=== PATIENT | female | born 1975 | race Caucasian/White ===

== ENCOUNTER → 2020-05-13 | Outpatient (CLI) | LOC: LABNPT 08:47 | PROVIDERS: ATTEND Otolaryngology Otolaryngology/Facial Plastic Surgery | DX: R50.9 Fever, unspecified (principal); Z20.828 Contact with and (suspected) exposure to other viral communicable diseases | CPT/HCPCS: 87635 ==

== ENCOUNTER 2022-01-25 11:42 | Emergency (ER) | payer OTHER ==
[~2022-01-25] VITALS: Ht 154.9 cm; Wt 74.7 kg
--- NOTE | 2022-01-25 12:10 | ED General ---
General Chief Complaint: Bite-Animal/Human/Insect Stated Complaint: SPIDER BITE History of Present Illness Date Seen by Provider: Jan 25, 2022 Time Seen by Provider: 10:02 Initial Comments 46-year-old female is here with complaints of spider bite to her left posterior shoulder. Patient went to urgent care yesterday and was given a 5-day prescription for prednisone. Patient is having a rash which is on her back and her leg and is in the ER for follow-up of her symptoms. Denies itching, fever, nausea vomiting, abdominal pain, shortness of breath, chest pain, diarrhea. Allergies and Home Medications Patient Home Medication List Home Medication List Reviewed: Yes Review of Systems Review of Systems Constitutional: no symptoms reported EENTM: no symptoms reported Respiratory: no symptoms reported Cardiovascular: no symptoms reported Gastrointestinal: no symptoms reported Genitourinary: no symptoms reported Musculoskeletal: no symptoms reported Skin: rash, other (spider bite) Psychiatric/Neurological: No Symptoms Reported Hematologic/Lymphatic: No Symptoms Reported Immunological/Allergic: no symptoms reported Past Bjpbiuh-Wrmuem-Koruhi Hx Patient Social History Tobacco Use?: No Smokeless Tobacco Frequency: Never a User Use of E-Cig and/or Vaping Aki: Never a User Substance use?: No Alcohol Use?: No Pt feels they are or have been: No Immunizations Up To Date Influenza Vaccine Up-to-Date: Yes; Up-to-Date First/Initial COVID19 Vaccinat: ? October 2020 Second COVID19 Vaccination Antonio: ? December 2020 Past Medical History Surgery/Hospitalization HX: Hysterectomy, [place] teeth, Heart ablation, Hx SVT, Environmental allergy Physical Exam Vital Signs Vital Signs - First Documented 01/25/22 11:45 Temp 36.8 Pulse 99 Resp 20 B/P (MAP) 155/98 (117) Pulse Ox 99 O2 Delivery Room Air Capillary Refill : Height, Weight, BMI Height: '" Weight: lbs. oz. kg; BMI Method: General Appearance: No Apparent Distress HEENT: PERRL/EOMI Neck: Full Range of Motion Respiratory: Chest Non Tender, Lungs Clear Cardiovascular: Regular Rate, Rhythm Gastrointestinal: Normal Bowel Sounds, Non Tender, Soft Back: No CVA Tenderness Neurologic/Psychiatric: Alert, Oriented x3, No Motor/Sensory Deficits, Normal Mood/Affect Skin: Rash (Macular rash on back posterior. Rash on lower legs macular nonpruritic. No pedal edema.), Other (Spider bite with blister formation over the bite area on right posterior shoulder with surrounding erythema.) Lymphatic: No Adenopathy Progress/Results/Core Measures Suspected Sepsis SIRS Temperature: Pulse: Respiratory Rate: Blood Pressure / Mean: Results/Orders Vital Signs/I&O 01/25/22 11:45 Temp 36.8 Pulse 99 Resp 20 B/P (MAP) 155/98 (117) Pulse Ox 99 O2 Delivery Room Air Capillary Refill : Progress Note : Progress Note 1. BROWN RECLUSE SPIDER BITE: - Pt already has prescription for prednisone from urgent care. Advised to continue the entire course -Augmentin prescription given for 7 days twice daily -Antibiotic ointment recommended for spider bite area -Benadryl and Pepcid which are [id number], Benadryl 25 mg twice a day and Pepcid 20 mg once daily. No driving while taking Benadryl -Follow-up with PCP within the next 5 to 7 days -The patient was seen in the ED, and treated appropriately to presentation at a specific point in time. Patient is informed that there is a possibility that disease and illness can evolve and change in acuity rapidly or slowly after patient is discharged from the ER. Precautionary advice given to the patient for immediate return to ER if symptoms worsen or do not resolve, and to seek emergency care sooner rather than later. Pt also advised on the importance of PCP follow up and compliance with management and follow up plan with PCP and/or specialist, as this is part of the management plan. Pt verbally expressed understanding. Departure Impression Primary Impression: Brown recluse spider bite Qualified Codes: T63.331A - Toxic effect of venom of brown recluse spider, accidental (unintentional), initial encounter Disposition: HOME, SELF-CARE Condition: Stable Departure-Patient Inst. Referrals: NO,LOCAL PHYSICIAN (PCP/Family) Primary Care Physician Patient Instructions: Spider Bites, Wound Care (DC) Add. Discharge Instructions: - Pt already has prescription for prednisone from urgent care. Advised to continue the entire course -Augmentin prescription given for 7 days twice daily -Antibiotic ointment recommended for spider bite area -Benadryl and Pepcid which are [id number], Benadryl 25 mg twice a day and Pepcid 20 mg once daily. No driving while taking Benadryl -Follow-up with PCP within the next 5 to 7 days All discharge instructions reviewed with patient and/or family. Voiced understanding. Scripts Amoxicillin/Potassium Clav (Augmentin 500-125 Tablet) 500 Mg-125 Mg Tablet 875 EACH PO Q12H for 7 Days, #14 TAB Prov: ALEX HOWARD MD 01/25/22 ALEX HOWARD MD Jan 25, 2022 12:10
[2022-01-25] MEDS ORDERED: AMOX-355 PO (14:00)
[2022-01-25 14:04] VITALS: BP 149/93
[2022-01-25] MEDS ORDERED: PRD20T PO (14:20)
== END 2022-01-25 14:04 | disposition home or self-care (01) ==
LOC: EDUNIT# 11:42 → ER FS 11:44
DX: T63.331A Toxic effect of venom of brown recluse spider, accidental (unintentional), initial encounter (principal)
CPT/HCPCS: 99283